=== PATIENT | male | born 1965 | race Caucasian/White ===

== ENCOUNTER 2022-02-18 07:15 | Day surgery (SDC) | payer OTHER, SELFPAY ==
[2022-02-18] VITALS (17 sets, daily range): BP systolic 118–162; BP diastolic 64–88; PULSE 61–88; RESP 16; TEMP 36.1–36.9; O2SAT 96–99; BMI 28.5
[2022-02-18] MEDS: LACTATED RINGERS 1000 ML 1,000 ML 35 ML IV ×2 (08:01→10:01)
--- NOTE | 2022-02-18 09:13 | PM.GSPRC ---
Operative Note Date of procedure: 02/18/22 Type of Procedure: 1. Laparoscopic bilateral inguinal hernia repair with mesh. 2. Open umbilical hernia repair without mesh. Procedure Description: After discussing the risks and benefits of the procedure, the patient signed informed consent.? The operative site was marked and the patient was brought to the operating room and placed on the operating table in supine position.? Care was taken to pad the patient's pressure points.?? The patient was then intubated by anesthesia.?? The operative site was then prepped and draped in the usual sterile fashion.? A time-out was then performed. An infraumbilical skin incision was made with a scalpel and subcutaneous tissues were dissected with electrocautery. Anterior sheath was incised with electrocautery and rectus muscle was retracted laterally. A 12 mm spacemaker dissector system was introduced into the incision and advanced over the posterior sheath. Preperitoneal space was dissected with manually insufflating air under direct visualization. Once the tissues were dissected, the balloon was deflated and removed.? A laparoscopic balloon was placed into preperitoneal space and balloon was inflated. Preperitoneal space was insufflated with air. No bleeding was identified upon examination of preperitoneal space. We then placed two 5 mm ports suprapubically under direct visualization. ? I first started on the right side. The preperitoneal tissues were bluntly dissected with graspers.? The pubic bone was identified and? cleared from preperitoneal tissue.?? Inferior epigastrics on right?side were retracted towards the abdominal wall.?? Spermatic cord? was identified and dissected circumferentially.? This was done bluntly. The indirect hernia space was identified.?? The indirect hernia sac was noted and peritoneum was dissected bluntly from the spermatic cord.?? When adequate space was developed for mesh placement, I proceeded with the left side. Similarly preperitoneal tissues were dissected in the left preperitoneal space with graspers. The left inferior epigastrics were retracted towards the abdominal wall and lateral space was developed for mesh placement. Direct incarcerated hernia was identified containing preperitoneal fat. This hernia was reduced. Indirect hernia sac was also identified and was firmly attached to the spermatic cord. This was dissected off the spermatic cord bluntly. When the peritoneum was retracted cephalad and enough space was developed for mesh placement, a left sided Dextile mesh was placed in the left preperitoneal space and secured in place with tacks medially and laterally.(my usual preference for mesh placement is Parietex mesh however left-sided mesh has been on back order). A sided Parietex mesh was used and positioned around the spermatic cord. The mesh was tacked medially and laterally with?tacks.? Additional local anesthetic was injected directly into pre-peritoneal space. ? The space was deflated under direct visualization and mesh appeared to be still lying in a good position. The ports were then removed. Anterior sheath was then closed with a running 0-0 vicryl suture. I then proceeded with umbilical hernia repair. The umbilicus was dissected off of the anterior fascia with cautery. The umbilical fascial opening was identified and preperitoneal fat was incarcerated through the hernia defect. This fat was reduced and pushed into the preperitoneal space. The fascial defect was approximately 9 mm. The fascia was very strong. I elected to repair this hernia without mesh. Preperitoneal space was developed with cautery. Interrupted 0-0 Nurolon sutures we used to close the hernia defect. Hemostasis was achieved with cautery. The umbilicus was then tacked down to the anterior fascia with interrupted 3-0 Vicryl sutures. Dermis was reapproximated with interrupted 3-0 sutures. The skin of infraumbilical and laparoscopic incisions was closed with a running 4-0 Monocryl stitch. Steri-Strips and sterile dressings were placed over the incisions. All counts were correct at the end of the case. Patient tolerated the procedure well and was transferred to PACU without any complications. ? Findings: Right indirect hernia, left direct and indirect hernia. The umbilical hernia defect was less than 1 cm and was repaired without mesh. Anesthesia: GETA Surgeon: Tiny Gtz MD Estimated blood loss (mL): 5 Condition: stable Disposition: PACU
[2022-02-18] MEDS: CEFAZOLIN 2 GM INJ IVP (09:20)
[2022-02-18] MEDS: BUPIVACAINE 0.25% 30 ML INJECTION (09:50)
[2022-02-18] MEDS: LACTATED RINGERS 1000 ML 1,000 ML 75 ML IV (10:01)
--- NOTE | 2022-02-18 11:13 | W.ANESCHARGE ---
Anesthesia Charges Start Date/Time Anesthesia Start Date: 02/18/22 Anesthesia Start Time: 09:11 Stop Date/Time Anesthesia Stop Date: 02/18/22 Anesthesia Stop Time: 11:06 Summary Emergency: No
== END 2022-02-18 13:40 | disposition home or self-care (01) ==
PROVIDERS: Visit Provider Surgery
PROC: (CPT 49650; principal; 2022-02-18 08:45)
DX: K40.00 Bilateral inguinal hernia, with obstruction, without gangrene, not specified as recurrent (principal); K42.0 Umbilical hernia with obstruction, without gangrene
CPT/HCPCS: 49650; 49587; 00840; C1781; J0690; J1100; J1885; J2250; J2405; J2704; J3010; J3490; J7120